=== PATIENT | male | born 1950 | race American Indian/Alaskan Native ===

== ENCOUNTER 2022-02-28 06:48 | Day surgery (SDC) | payer MEDICARE ==
[2022-02-28] MEDS ORDERED: ASPIRIN EC 325 MG TAB PO NR (07:08)
[2022-02-28] MEDS: MIDAZOLAM 2 MG/2 ML INJ ONE ×2 (08:25→09:33)
[2022-02-28] MEDS: LIDOCAINE MPF (2%) 20 MG/1 ML VIAL 5 ML ONE ×2 (08:25→09:36)
[2022-02-28] MEDS: fentaNYL 100 MCG/2 ML INJ ONE ×2 (08:25→09:33)
[2022-02-28] MEDS: VERAPAMIL 5 MG/2 ML INJ ONE ×2 (08:26→09:37)
[2022-02-28] MEDS: HEPARIN 10,000 UNITS/10 ML VIAL ONE ×2 (08:26→09:37)
[2022-02-28] MEDS: HEPARIN/NS 5000 UNIT/500ML 1,000 ML IR ONE ×2 (08:27→09:20)
[2022-02-28] MEDS: SODIUM CHLORIDE 0.9% 500 ML 500 ML IV SCH ×3 (08:27→09:25)
[2022-02-28] MEDS: NITROGLYCERIN SYRINGE 3 ML ONE ×2 (08:27→09:37)
--- NOTE | 2022-02-28 08:42 | Electrocardiograph Report ---
[facility] Test Date: 2022-02-28 Test Time: 07:50:31 Pat Name: SHILA GORDON Department: Room: Gender: M Relocation Specialist: PAWAN : 1950 Requested By: CHUCK PANCHAL Order Number: [id number] Reading MD: Chuck Panchal Measurements Intervals [place] Rate: 84 P: 50 MD: 191 QRS: -39 QRSD: 134 T: 121 QT: 385 QTc: 467 Interpretive Statements Sinus rhythm Paired ventricular premature complexes nonspecific st-t No previous ECG available for comparison Electronically Signed On 02-28-2022 8:42:09 EDT by Chuck Panchal
[2022-02-28 08:58] LABS: Basophils # (Auto) 0.1 K/mm3 (0.0-0.1); Basophils % (Auto) 2.3 % (0.0-1.8); Eosinophils # (Auto) 0.3 K/mm3 (0.0-0.4); Eosinophils % (Auto) 6.4 % (0.0-4.3); Hematocrit 39.8 % (35.5-45.6); Hemoglobin 12.7 gm/dl (11.8-15.2); Lymphocytes # (Auto) 1.9 K/mm3 (1.2-5.4); Lymphocytes % (Auto) 38.8 % (13.4-35.0); Mean Corpuscular HGB Conc 32 % (32-34); Mean Corpuscular Volume 82 fl (84-94); Monocytes # (Auto) 0.6 K/mm3 (0.0-0.8); Monocytes % (Auto) 12.7 % (0.0-7.3); Platelet Count 268 K/mm3 (140-440); Red Blood Count 4.83 M/mm3 (3.65-5.03); Red Cell Distribution Width 14.7 % (13.2-15.2)
[2022-02-28 09:07] LABS: INR 0.93 (0.87-1.13)
[2022-02-28 09:08] LABS: Partial Thromboplastin Time 28.7 Sec. (24.2-36.6)
[2022-02-28 09:10] LABS: BUN/Creatinine Ratio 10; Blood Urea Nitrogen 11 mg/dL (9-20); Calcium 9.1 mg/dL (8.4-10.2); Hemolysis Index 6
--- NOTE | 2022-02-28 10:22 | Cardiac Catherization Report ---
DATE OF SERVICE: 02/28/2022 LEFT HEART CATHETERIZATION CLINICAL INFORMATION: A 71-year-old -[place] gentleman with history of recurrent chest discomfort, abnormal stress test with cardiomyopathy, is here for left heart catheterization for ischemic evaluation. Procedure was done with moderate sedation started at 9:30, finished at 9:45, 15 minutes of moderate sedation. DESCRIPTION OF PROCEDURE: Procedure was done via the right radial artery, sterile technique and local anesthesia. A 6-Vietnamese radial sheath inserted. Left system engaged with JL3.5 catheter. Left main is large, long and patent. LAD is a large caliber vessel, patent. Diagonal 1 small to medium caliber, was patent. Ramus is a large caliber vessel with upper and lower branch patent. Circumflex medium caliber patent, small OM1 patent. RCA is a medium caliber vessel with moderate severe tortuosity, is patent. Small PDA patent. LV gram done in ANSELMO and BRIGGS view shows mild left ventricular dysfunction, EF 40-45%. LVEDP at 3 mmHg, LV is 110, aortic is 110/50. No gradient across the aortic valve on pullback. The 5-Vietnamese catheters all taken over guidewire. A 6-Vietnamese radial sheath was DC. Radial band applied. No hematoma, no bleeding. SUMMARY: Mild left ventricular dysfunction, EF 40-45% with patent coronaries, nonischemic cardiomyopathy. Discussed this with the patient and the patient's family in detail. TID: [id number] RECEIPT: [id number] QUIRINO
--- NOTE | 2022-02-28 10:28 | Short Stay Summary ---
Short Stay Documentation Date of service: 02/28/22 - History H&P: obtained from office - Allergies and Medications Current Medications: Allergies No Known Allergies Allergy (Verified 02/28/22 07:05) Home Medications Medication Instructions Recorded Confirmed Last Taken Type Ferrous Sulfate [Iron 325 MG] 325 mg PO DAILY 02/28/22 02/28/22 02/27/22 History 325 mg Spironolactone [Aldactone] 25 mg PO DAILY 02/28/22 02/28/22 02/27/22 History 25 mg Tamsulosin [Flomax] 2 tab PO HS 02/28/22 02/28/22 02/27/22 History 2 tabs carvediloL [Coreg] 6.25 mg PO BID 02/28/22 02/28/22 02/27/22 History 6.25mg lisinopriL [Lisinopril] 10 mg PO DAILY 02/28/22 02/28/22 02/27/22 History 10 mg Active Medications Hydrocodone Bitart/Acetaminophen (Hydrocodone/Acetaminophen 5-325 Mg Tab) 1 each PO Q4H PRN PRN Reason: Pain, Moderate (4-6) Aspirin (Aspirin Ec 325 Mg Tab) 325 mg PO ONCE NR Stop: 02/28/22 23:00 Last Admin: 02/28/22 08:51 Dose: 325 mg Sodium Chloride (Nacl 0.9% 500 Ml) 500 mls @ 50 mls/hr IV DIRECT BARON Stop: 02/28/22 17:59 Last Admin: 02/28/22 09:25 Dose: 50 mls/hr Tramadol HCl (Tramadol 50 Mg Tab) 50 mg PO Q4H PRN PRN Reason: Pain, Mild (1-3) - Physical exam Integumentary: other (Dressing clean dry and intact with no signs of bleeding or hematoma) - Brief post op/procedure progress note Date of procedure: 02/28/22 Pre-op diagnosis: Abnormal stress test Post-op diagnosis: other Anesthesia: local Estimated blood loss: minimal - Hospital course Hospital course: Patient presents today for cardiac cath due to abnormal stress test. Patient had negative cardiac cath with no indications for intervention. See cath report for full details. Patient to be discharged home and follow-up in the office as an outpatient - Disposition Condition at discharge: Good Disposition: 01 HOME / SELF CARE / HOMELESS - Discharge Diagnoses (1) Chronic systolic heart failure Status: Acute (2) Abnormal stress test Status: Acute Short Stay Discharge Plan Activity: advance as tolerated Diet: low fat, low cholesterol, low salt Wound: keep clean and dry, per your surgeon's advice Follow up with: CONSTANTINE LOMELI MD [Primary Care Provider] - 7 Days PHAM AMAYA MD [Staff Physician] - 7 Days
[2022-02-28] MEDS ORDERED: HYDROcodone/ACETAMINOPHEN 5-325 MG TAB PO PRN (10:30)
[2022-02-28] MEDS ORDERED: traMADol 50 MG TAB PO PRN (10:30)
[2022-02-28 13:31] VITALS: BP 114/61
== END 2022-02-28 13:51 | disposition home or self-care (01) ==
LOC: CATHLABREC 06:48
PROVIDERS: ATTEND Internal Medicine
DX: R07.89 Other chest pain (principal); R94.39 Abnormal result of other cardiovascular function study; I42.9 Cardiomyopathy, unspecified; I11.0 Hypertensive heart disease with heart failure; I50.22 Chronic systolic (congestive) heart failure; F32.9 Major depressive disorder, single episode, unspecified; Z98.890 Other specified postprocedural states; Z79.899 Other long term (current) drug therapy; Z87.891 Personal history of nicotine dependence; Z98.49 Cataract extraction status, unspecified eye; Z86.73 Personal history of transient ischemic attack (TIA), and cerebral infarction without residual deficits; Z82.49 Family history of ischemic heart disease and other diseases of the circulatory system; Z82.5 Family history of asthma and other chronic lower respiratory diseases
CPT/HCPCS: 36415; 80048; 85025; 85610; 85730; 93005; 93458; 99156; C1894; J1644; J1815; J2250; J3010; J7040; Q9967